=== PATIENT | female | born 1980 | race African-American/Black ===

== ENCOUNTER 2022-05-15 14:35 | Emergency (ER) | payer OTHER ==
[~2022-05-15] VITALS: Ht 152.4 cm; Wt 84.4 kg
[2022-05-15 14:40] VITALS: BP 115/65
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
[2022-05-15] MEDS ORDERED: AMOXICILLIN TRIHYDRATE 500 MG CAPSULE PO ONE (16:30)
[2022-05-15] MEDS ORDERED: AMOXICILLIN TRIHYDRATE 250 MG CAPSULE ONE (16:36)
[2022-05-15] MEDS ORDERED: NEOM10DR11 EACH EAR (16:37)
[2022-05-15] MEDS ORDERED: AMOX500C2 PO (16:37)
--- NOTE | 2022-05-15 16:42 | NUR ---
Patient discharged to [facility] in stable condition. Written and verbal after care instructions given. Patient verbalizes understanding of instruction.
== END 2022-05-15 16:42 ==
LOC: ER 14:40
DX: S00.83XA Contusion of other part of head, initial encounter (principal); S60.221A Contusion of right hand, initial encounter; H66.91 Otitis media, unspecified, right ear; H60.93 Unspecified otitis externa, bilateral; Z88.5 Allergy status to narcotic agent; Y04.0XXA Assault by unarmed brawl or fight, initial encounter; Y93.89 Activity, other specified; Y92.89 Other specified places as the place of occurrence of the external cause; Y99.8 Other external cause status